=== PATIENT | male | born 1995 | race Caucasian/White ===

== ENCOUNTER 2023-01-31 20:48 | Emergency (ER) | payer BC, OTHER ==
[2023-01-31 21:11] VITALS: BP 120/76
[2023-01-31 22:03] VITALS: PULSE 64
== END 2023-01-31 21:48 | disposition home or self-care (01) ==
LOC: MW.ED 20:48
DX: T15.01XA Foreign body in cornea, right eye, initial encounter (principal)
CPT/HCPCS: 65205; 65220; 99283